=== PATIENT | female | born 1980 | race Caucasian/White ===

== ENCOUNTER 2017-08-01 13:47 | Emergency (ER) | payer OTHER ==
[~2017-08-01] VITALS: Ht 157.5 cm; Wt 68.0 kg
[2017-08-01 14:30] LABS: ABSOLUTE NEUTROPHILS 7.6 thou/uL (1.4-8.2); BASOPHILS 0.6 % (0.0-2.0); EOSINOPHILS 2.3 % (0.0-3.0); HEMATOCRIT 40.9 % (37.0-47.0); HEMOGLOBIN 14.1 gm/dL (12.0-15.0); LYMPHOCYTES 20.4 % (24.0-44.0); MCH 32.3 pg (26.0-34.0); MCHC 34.6 g/dL (28.0-37.0); MCV 93.4 fL (80.0-100.0); MONOCYTES 6.3 % (1.0-8.0); PLATELET COUNT 296 thou/uL (150-400); POLYS 70.4 % (36.0-66.0); RBC 4.38 mil/uL (4.20-5.00); RDW 13.9 % (10.5-14.5); WBC 10.7 thou/uL (4.0-11.0)
[2017-08-01 14:31] LABS: MANUAL DIFF NO
[2017-08-01 14:51] LABS: CALCIUM 8.8 mg/dL (8.5-10.1); CREATININE 1.1 mg/dL (0.6-1.0); POTASSIUM 3.9 mmol/L (3.5-5.1)
[2017-08-01 14:55] LABS: ALBUMIN 3.6 g/dL (3.4-5.0); TOTAL BILIRUBIN 0.2 mg/dL (<0.1-1.0); TOTAL PROTEIN 7.4 g/dL (6.4-8.2)
[2017-08-01 15:11] LABS: URINE BILIRUBIN NEGATIVE (Negative); URINE BLOOD 2+ (Negative); URINE COLOR YELLOW; URINE GLUCOSE-RANDOM* NEGATIVE (Negative); URINE KETONES NEGATIVE (Negative); URINE LEUKOCYTES-REFLEX NEGATIVE (Negative); URINE PROTEIN (DIPSTICK) 1+ (Negative); URINE SPECIFIC GRAVITY >= 1.030 (1.005-1.035); URINE UROBILINOGEN 0.2 E.U./dl (0.2-1.0)
[2017-08-01 15:22] LABS: SQUAMOUS >10 Many /LPF (0-3)
[2017-08-01 15:24] LABS: AMORPHOUS URATES Moderate /LPF (None Seen); CALCIUM OXALATE 0-3 Few /LPF (None Seen); CASTS None Seen /LPF (None Seen); URINE RBC 0-2 Rare /HPF (0-2); URINE WBC-REFLEX 0-5 Rare /HPF (0-5)
[2017-08-01] MEDS ORDERED: ZOFRAN ODT8 MG PO (15:40)
[2017-08-01] MEDS ORDERED: FLOMAX0.4 MG PO (15:40)
[2017-08-01] MEDS ORDERED: TORADOL 10 MG T10 MG PO (15:40)
[2017-08-01] MEDS ORDERED: HYDROCODONE-AP1 EAC6 PO (15:40)
[2017-08-01 16:05] VITALS: BP 141/85
== END 2017-08-01 16:14 | disposition home or self-care (01) ==
LOC: ER 13:47
PROVIDERS: Emergency Medicine
DX: N20.1 Calculus of ureter (principal); Z88.0 Allergy status to penicillin

== ENCOUNTER 2017-11-04 10:23 | Emergency (ER) | payer OTHER ==
[~2017-11-04] VITALS: Ht 157.5 cm; Wt 72.6 kg
--- NOTE | ~2017-11-04 | EKG ---
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
[~2017-11-04 10:23] MED LIST: FLOMAX0.4 MG PO; HYDROCODONE-AP1 EAC6 PO; TORADOL 10 MG T10 MG PO; ZOFRAN ODT8 MG PO
[2017-11-04] MEDS ORDERED: MULTIPLE VITAM1 EAC2 PO (10:31)
[2017-11-04 11:02] LABS: ABSOLUTE NEUTROPHILS 3.8 thou/uL (1.4-8.2); BASOPHILS 0.5 % (0.0-2.0); EOSINOPHILS 4.2 % (0.0-3.0); HEMATOCRIT 42.6 % (37.0-47.0); HEMOGLOBIN 14.3 gm/dL (12.0-15.0); LYMPHOCYTES 29.4 % (24.0-44.0); MCH 31.9 pg (26.0-34.0); MCHC 33.6 g/dL (28.0-37.0); MCV 95.1 fL (80.0-100.0); MONOCYTES 8.4 % (1.0-8.0); PLATELET COUNT 280 thou/uL (150-400); POLYS 57.5 % (36.0-66.0); RBC 4.48 mil/uL (4.20-5.00); RDW 12.9 % (10.5-14.5); WBC 6.6 thou/uL (4.0-11.0)
[2017-11-04 11:10] LABS: ANION GAP 13 mmol/L (7-16); BUN 11 mg/dL (7-18); CALCIUM 9.2 mg/dL (8.5-10.1); CHLORIDE 105 mmol/L (98-107); CO2 25 mmol/L (21-32); CREATININE 0.6 mg/dL (0.6-1.0); GLUCOSE 84 mg/dL (74-106); POTASSIUM 3.9 mmol/L (3.5-5.1); SODIUM 143 mmol/L (136-145)
[2017-11-04 11:19] LABS: TROPONIN-I < 0.04 ng/mL (<0.06)
[2017-11-04] MEDS ORDERED: HYDROXYZINE HCL25 M1 PO (12:06)
[2017-11-04] MEDS ORDERED: PROZAC20 MG PO (12:12)
[2017-11-04 12:30] VITALS: BP 135/90
== END 2017-11-04 12:15 | disposition home or self-care (01) ==
LOC: ER 10:23
PROVIDERS: Physician Assistant
DX: R07.89 Other chest pain (principal); Z87.442 Personal history of urinary calculi; Z88.0 Allergy status to penicillin

== ENCOUNTER 2018-01-04 18:34 | Emergency (ER) | payer OTHER ==
[~2018-01-04] VITALS: Ht 157.5 cm; Wt 74.8 kg
[~2018-01-04 18:34] MED LIST changes: +HYDROXYZINE HCL25 M1 PO; +MULTIPLE VITAM1 EAC2 PO; +PROZAC20 MG PO
[2018-01-04 19:08] LABS: ABSOLUTE NEUTROPHILS 4.6 thou/uL (1.4-8.2); BASOPHILS 0.5 % (0.0-2.0); EOSINOPHILS 2.6 % (0.0-3.0); HEMATOCRIT 39.6 % (37.0-47.0); HEMOGLOBIN 13.5 gm/dL (12.0-15.0); LYMPHOCYTES 25.7 % (24.0-44.0); MCH 32.4 pg (26.0-34.0); MCHC 34.2 g/dL (28.0-37.0); MCV 94.8 fL (80.0-100.0); MONOCYTES 7.9 % (1.0-8.0); PLATELET COUNT 201 thou/uL (150-400); POLYS 63.3 % (36.0-66.0); RBC 4.18 mil/uL (4.20-5.00); RDW 13.5 % (10.5-14.5); WBC 7.2 thou/uL (4.0-11.0)
[2018-01-04 19:11] LABS: CALCIUM 8.6 mg/dL (8.5-10.1); CREATININE 0.6 mg/dL (0.6-1.0); POTASSIUM 3.7 mmol/L (3.5-5.1)
[2018-01-04 19:17] LABS: ALBUMIN 3.4 g/dL (3.4-5.0); DIRECT BILIRUBIN 0.2 mg/dL (<0.1-0.3); TOTAL BILIRUBIN 0.7 mg/dL (<0.1-1.0)
[2018-01-04] MEDS ORDERED: NORCO 5-325 TA1 EACH PO (21:16)
[2018-01-04 21:23] VITALS: BP 142/82
== END 2018-01-04 21:25 | disposition home or self-care (01) ==
LOC: ER 18:34
PROVIDERS: Emergency Medicine
DX: N83.209 Unspecified ovarian cyst, unspecified side (principal); F41.9 Anxiety disorder, unspecified; F17.210 Nicotine dependence, cigarettes, uncomplicated; Z88.0 Allergy status to penicillin; Z90.89 Acquired absence of other organs

== ENCOUNTER 2019-08-09 20:33 | Emergency (ER) | payer OTHER ==
[~2019-08-09] VITALS: Ht 157.5 cm; Wt 72.6 kg
[~2019-08-09 20:33] MED LIST changes: +NORCO 5-325 TA1 EACH PO
[2019-08-09] MEDS ORDERED: LOPRESSOR50 MG PO (20:51)
[2019-08-09] MEDS ORDERED: LISINOPRIL2.5 MG PO (20:51)
[2019-08-09 21:12] LABS: MCH 33.8 pg (26.0-34.0); MCHC 33.4 g/dL (28.0-37.0); MCV 101.1 fL (80.0-100.0); PLATELET COUNT 283 thou/uL (150-400); RBC 4.15 mil/uL (4.20-5.00); RDW 15.7 % (10.5-14.5); WBC 5.9 thou/uL (4.0-11.0)
[2019-08-09 21:15] LABS: ANION GAP < 0 mmol/L (7-16); BUN 11 mg/dL (7-18); CALCIUM 9.5 mg/dL (8.5-10.1); CHLORIDE 111 mmol/L (98-107); CO2 24 mmol/L (21-32); CREATININE 0.7 mg/dL (0.6-1.0); GLUCOSE 95 mg/dL (74-106); POTASSIUM 3.9 mmol/L (3.5-5.1); SODIUM 133 mmol/L (136-145)
[2019-08-09 21:25] LABS: ALBUMIN 3.5 g/dL (3.4-5.0); SGOT 18 U/L (15-37); SGPT 25 U/L (30-65); TOTAL BILIRUBIN 0.4 mg/dL (<0.1-1.0); TOTAL PROTEIN 7.6 g/dL (6.4-8.2); TROPONIN-I <0.06 ng/mL (<0.06)
[2019-08-09 21:57] LABS: ABSOLUTE NEUTROPHILS 3.7 thou/uL (1.4-8.2)
[2019-08-09 21:58] LABS: PLATELET ESTIMATE NORMAL
[2019-08-10] MEDS ORDERED: TAMIFLU75 MG PO (00:18)
[2019-08-10] MEDS ORDERED: PROMETH-CODEIN 65 ML PO (00:18)
[2019-08-10 00:31] VITALS: BP 153/106
--- NOTE | 2019-08-10 08:33 | EKG ---
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: osvaldo : 1980 Requested By: Chan Boateng Order Number: [id number] MD: Daniel Du Measurements Intervals [place] Rate: 91 P: 24 OK: 125 QRS: 56 QRSD: 98 T: 41 QT: 362 QTc: 446 Interpretive Statements Sinus rhythm No significant abnormality Baseline wander in lead(s) II,V1,V2,V3 Compared to ECG 11/04/2017 10:32:42 no significant change was found Electronically Signed On 08-10-2019 8:33:09 INTERVENTIONAL CARDIOLOGIST by Daniel Du [email or web address] <ELECTRONICALLY SIGNED> By: Daniel Du MD, [facility] 08/10/19832 52 52 Daniel Du MD, [facility] /EPI
== END 2019-08-10 00:31 | disposition home or self-care (01) ==
LOC: ER 20:33
PROVIDERS: Physician Assistant
DX: J11.1 Influenza due to unidentified influenza virus with other respiratory manifestations (principal); I10 Essential (primary) hypertension; F41.9 Anxiety disorder, unspecified; Z87.442 Personal history of urinary calculi; F17.210 Nicotine dependence, cigarettes, uncomplicated; Z88.0 Allergy status to penicillin

== ENCOUNTER 2019-09-26 17:26 | Emergency (ER) | payer OTHER ==
[~2019-09-26] VITALS: Ht 157.5 cm; Wt 72.6 kg
[~2019-09-26 17:26] MED LIST changes: +LISINOPRIL2.5 MG PO; +LOPRESSOR50 MG PO; +PROMETH-CODEIN 65 ML PO; +TAMIFLU75 MG PO
[2019-09-26 18:21] LABS: ABSOLUTE NEUTROPHILS 9.9 thou/uL (1.4-8.2); BASOPHILS 0.5 % (0.0-2.0); EOSINOPHILS 0.5 % (0.0-3.0); HEMATOCRIT 41.7 % (37.0-47.0); HEMOGLOBIN 13.4 gm/dL (12.0-15.0); LYMPHOCYTES 8.9 % (24.0-44.0); MCH 32.2 pg (26.0-34.0); MCHC 32.2 g/dL (28.0-37.0); MCV 99.8 fL (80.0-100.0); MONOCYTES 3.3 % (1.0-8.0); PLATELET COUNT 286 thou/uL (150-400); POLYS 86.8 % (36.0-66.0); RBC 4.18 mil/uL (4.20-5.00); RDW 14.5 % (10.5-14.5); WBC 11.4 thou/uL (4.0-11.0)
[2019-09-26 18:33] LABS: ANION GAP 10 mmol/L (7-16); BUN 12 mg/dL (7-18); CALCIUM 9.1 mg/dL (8.5-10.1); CHLORIDE 102 mmol/L (98-107); CO2 26 mmol/L (21-32); CREATININE 0.7 mg/dL (0.6-1.0); GLUCOSE 88 mg/dL (74-106); SODIUM 138 mmol/L (136-145)
[2019-09-26 18:40] LABS: ALBUMIN 4.2 g/dL (3.4-5.0); SGOT 22 U/L (15-37); SGPT 27 U/L (30-65); TOTAL BILIRUBIN 0.7 mg/dL (<0.1-1.0); TOTAL PROTEIN 8.3 g/dL (6.4-8.2); TROPONIN-I <0.06 ng/mL (<0.06)
[2019-09-26 22:10] VITALS: BP 157/106
--- NOTE | 2019-09-27 08:21 | EKG ---
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
== END 2019-09-26 22:10 | disposition home or self-care (01) ==
LOC: ER 17:26
PROVIDERS: Emergency Medicine
DX: R07.89 Other chest pain (principal); F41.9 Anxiety disorder, unspecified; F17.210 Nicotine dependence, cigarettes, uncomplicated; Z87.442 Personal history of urinary calculi; Z98.51 Tubal ligation status; Z88.0 Allergy status to penicillin

== ENCOUNTER 2020-01-22 19:55 | Emergency (ER) | payer OTHER ==
[~2020-01-22] VITALS: Ht 157.5 cm; Wt 70.3 kg
[2020-01-22 20:42] LABS: ABSOLUTE NEUTROPHILS 7.3 thou/uL (1.4-8.2); BASOPHILS 0.8 % (0.0-2.0); EOSINOPHILS 2.1 % (0.0-3.0); HEMATOCRIT 40.9 % (37.0-47.0); HEMOGLOBIN 13.8 gm/dL (12.0-15.0); LYMPHOCYTES 14.9 % (24.0-44.0); MCH 34.6 pg (26.0-34.0); MCHC 33.6 g/dL (28.0-37.0); MCV 102.8 fL (80.0-100.0); MONOCYTES 8.6 % (1.0-8.0); PLATELET COUNT 310 thou/uL (150-400); POLYS 73.6 % (36.0-66.0); RBC 3.98 mil/uL (4.20-5.00); RDW 15.3 % (10.5-14.5); WBC 9.9 thou/uL (4.0-11.0)
[2020-01-22 20:45] LABS: URINE BILIRUBIN NEGATIVE (Negative); URINE BLOOD NEGATIVE (Negative); URINE CLARITY CLEAR; URINE COLOR YELLOW; URINE GLUCOSE-RANDOM* NEGATIVE (Negative); URINE KETONES 1+ (Negative); URINE NITRITE-REFLEX NEGATIVE (Negative); URINE PROTEIN (DIPSTICK) NEGATIVE (Negative); URINE SPECIFIC GRAVITY >= 1.030 (1.005-1.035); URINE UROBILINOGEN 0.2 E.U./dl (0.2-1.0)
[2020-01-22 20:46] LABS: URINE LEUKOCYTES-REFLEX 2+ (Negative)
[2020-01-22 20:51] LABS: CALCIUM 8.8 mg/dL (8.5-10.1); CREATININE 0.9 mg/dL (0.6-1.0); POTASSIUM 3.9 mmol/L (3.5-5.1)
[2020-01-22 20:54] LABS: CASTS None Seen /LPF (None Seen); CRYSTALS None Seen /LPF (None Seen); SQUAMOUS 4-10 Moderate /LPF (0-3); URINE RBC None Seen /HPF (0-2); YEAST-REFLEX Present (None Seen)
[2020-01-22 20:55] LABS: BACTERIA-REFLEX 1-9 Few /HPF (None Seen)
[2020-01-22 20:57] LABS: ALBUMIN 3.6 g/dL (3.4-5.0); TOTAL BILIRUBIN 0.5 mg/dL (0.2-1.0); TOTAL PROTEIN 7.2 g/dL (6.4-8.2)
[2020-01-22 23:49] VITALS: BP 152/104
== END 2020-01-22 23:50 | disposition home or self-care (01) ==
LOC: ER 19:55
PROVIDERS: Emergency Medicine
DX: R10.31 Right lower quadrant pain (principal); R11.0 Nausea; R51 Headache; N89.8 Other specified noninflammatory disorders of vagina; M54.5 Low back pain; R30.9 Painful micturition, unspecified; F41.9 Anxiety disorder, unspecified; I10 Essential (primary) hypertension; F17.210 Nicotine dependence, cigarettes, uncomplicated; Z88.0 Allergy status to penicillin; Z79.899 Other long term (current) drug therapy; Z87.442 Personal history of urinary calculi; Z98.51 Tubal ligation status

== ENCOUNTER 2020-04-29 13:48 | Emergency (ER) | payer OTHER ==
[~2020-04-29] VITALS: Ht 157.5 cm; Wt 65.8 kg
[~2020-04-29 13:48] MED LIST changes: +PRINIVIL20 M1 PO; +PROZAC20 M1 PO
[2020-04-29 14:23] LABS: ABSOLUTE NEUTROPHILS 4.3 thou/uL (1.4-8.2); BASOPHILS 1.3 % (0.0-2.0); EOSINOPHILS 3.3 % (0.0-3.0); HEMATOCRIT 42.4 % (37.0-47.0); HEMOGLOBIN 14.1 gm/dL (12.0-15.0); LYMPHOCYTES 17.2 % (24.0-44.0); MCH 32.8 pg (26.0-34.0); MCHC 33.3 g/dL (28.0-37.0); MCV 98.6 fL (80.0-100.0); MONOCYTES 10.3 % (1.0-8.0); PLATELET COUNT 225 thou/uL (150-400); POLYS 67.9 % (36.0-66.0); RBC 4.31 mil/uL (4.20-5.00); RDW 17.1 % (10.5-14.5); WBC 6.3 thou/uL (4.0-11.0)
[2020-04-29 14:32] LABS: ANION GAP 16 mmol/L (7-16); BUN 8 mg/dL (7-18); CALCIUM 9.7 mg/dL (8.5-10.1); CHLORIDE 103 mmol/L (98-107); CO2 23 mmol/L (21-32); CREATININE 0.6 mg/dL (0.6-1.0); GLUCOSE 105 mg/dL (74-106); POTASSIUM 3.4 mmol/L (3.5-5.1); SODIUM 142 mmol/L (136-145)
[2020-04-29 14:41] LABS: TROPONIN-I <0.06 ng/mL (<0.06)
--- NOTE | 2020-04-29 15:51 | EKG ---
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: : 1980 Requested By: Heriberto Mares Order Number: [id number] MD: Vinay Dixon Measurements Intervals [place] Rate: 103 P: -44 WI: 130 QRS: 52 QRSD: 90 T: 39 QT: 349 QTc: 457 Interpretive Statements Sinus tachycardia Baseline wander in lead(s) I,III,aVL Compared to ECG 09/26/2019 17:30:41 Sinus rhythm no longer present Electronically Signed On 04-29-2020 15:50:55 CDT by Vinay Dixon [email or web address] <ELECTRONICALLY SIGNED> By: Vinay Dixon MD, FACC 04/29/20 1550 1406 1406 Vinay Dixon MD, [facility] /EPI
[2020-04-29 16:39] VITALS: BP 121/86
== END 2020-04-29 16:58 | disposition home or self-care (01) ==
LOC: ER 13:48
PROVIDERS: Emergency Medicine
DX: R07.89 Other chest pain (principal); I25.10 Atherosclerotic heart disease of native coronary artery without angina pectoris; I10 Essential (primary) hypertension; F17.210 Nicotine dependence, cigarettes, uncomplicated; Z88.0 Allergy status to penicillin